=== PATIENT | female | born 1965 | race Caucasian/White ===

== ENCOUNTER 2017-08-16 08:31 | Inpatient (IN) ==
--- NOTE | 2017-08-16 07:46 | Discharge Summary ---
Date of Encounter: 08/17/17 Time of Encounter: 07:38 - Discharge Diagnosis (1) Arthritis of right hip Priority: Primary Status: Chronic (2) Status post total hip replacement, right Priority: Primary Status: Acute (3) Tobacco dependence Priority: Secondary Status: Chronic - Discharge Medications Home Medications: Aspirin Enteric Coated [Aspirin EC] 325 mg PO BID #20 tablet. 08/16/17 [Rx] Cholecalciferol (D-3) [Vitamin D] 3,000 unit PO DAILY 08/16/17 [History] Omeprazole [PriLOSEC] 20 mg PO DAILY 08/16/17 [History] OxyCODONE Immed Rel [Roxicodone 5 MG] 5 mg PO Q4HR PRN #24 tablet 08/16/17 [Rx] Ropinirole HCl [Requip] 2 mg PO HS 08/16/17 [History] Simvastatin [Zocor] 20 mg PO HS 08/16/17 [History] Allergies/Adverse Reactions: 3 Allergy/AdvReac Type Severity Reaction Status Date / Time No Known Allergies Allergy Verified 08/16/17 08:56 Primary care physician: Carmen Persaud, - Patient Status Disposition: Home, Self-Care Condition: Good Functional capacity at discharge: uses cane/walker Overall status at discharge: patient is progressing back to baseline - Discharge Instructions Follow Up With: Carmen Persaud MD [Primary Care Provider] - - Hospital Course Hospital course: Ms. Lopez is a 52 year old female Status post right total hip The patient had an uneventful postoperative course. They received antibiotics and physical therapy and were discharged in stable condition. There will follow -up in the office in 2 weeks. - Time Spent with Patient Total time spent providing and/or coordinating discharge services:
[2017-08-16] MEDS ORDERED: Albuterol 2.5 MG/3 ML NEBULIZER ONE (08:45)
[2017-08-16] MEDS ORDERED: Albuterol 2.5 MG/3 ML NEBULIZER IH ONE (09:00)
[2017-08-16] MEDS ORDERED: CeFAZolin Syr 2,000MG/20 ML 2,000 MG/20 ML SYRINGE IVPB ONE (09:00)
[2017-08-16] MEDS ORDERED: Ringers Solution, Lactated 1,000 ML IVC SCH (09:00)
--- NOTE | 2017-08-16 09:31 | History & Physical Report ---
Date of Encounter: 08/16/17 Time of Encounter: 09:30 24 Hour HP Update - Instructions Instructions: If the History and Physical is less than 30 days old and was completed prior to A.M. admission and or procedure and has NOT been updated on calendar day of procedure please complete this update prior to performing procedure. - Update Patient reports changes in Medical Condition: No Changes in examination, assessment, or condition: No Changes in Medication: No Preop tests/diagnostics Reviewed: Yes Surgery Remains Indicated: Yes Consent for Planned Operative Procedure(s) Verified: Yes - Pre-Operative Checklist Preoperative Checklist Indicated: No Prophylactic Antibiotic Ordered: Yes Is VTE Prophylaxis Indicated?: Yes
[2017-08-16] MEDS ORDERED: *HR* Labetalol 20 MG/4 ML SYRINGE IVP PRN (09:52)
[2017-08-16] MEDS ORDERED: *HR* Meperidine 25 MG/ML SYRINGE IVP PRN (09:52)
[2017-08-16] MEDS ORDERED: *HR* Promethazine 25 MG/ML VIAL IVP PRN (09:52)
--- NOTE | 2017-08-16 09:53 | Anesthesia Evaluation PreOp ---
Date of Encounter: 08/16/17 Time of Encounter: 09:51 - Past History Planned Operation: Right Total Hip Cardiac History: Denies any Significant Hx Pulmonary History: Smoker, Pack/yr (1 ppd x 30 Years) ARTS ADMINISTRATOR History: Denies Any Significant HX, Other (Anxiety) Other Medical History: GERD, Other (RLS, Vit. D Def) Anesthesia History: No Prior Anesthetic Complications, Past Anesthesia (Hyst, laparoscopy, Tonsilletomy, Breast Lumpectomy) : No (HYST) Alcohol Use: occasionally Drug use: none Medications and Allergies Aspirin Enteric Coated [Aspirin EC] 325 mg PO BID #20 tablet. 08/16/17 [Rx] Cholecalciferol (D-3) [Vitamin D] 3,000 unit PO DAILY 08/16/17 [History] Omeprazole [PriLOSEC] 20 mg PO DAILY 08/16/17 [History] OxyCODONE Immed Rel [Roxicodone 5 MG] 5 mg PO Q4HR PRN #24 tablet 08/16/17 [Rx] Ropinirole HCl [Requip] 2 mg PO HS 08/16/17 [History] Simvastatin [Zocor] 20 mg PO HS 08/16/17 [History] 3 Allergy/AdvReac Type Severity Reaction Status Date / Time No Known Allergies Allergy Verified 08/16/17 08:56 - Meds/Allergy Pre-op Review Medications Reviewed: Yes Allergies Reviewed: Yes Beta Blockers on Current Med List: No Anesthesia Results - Labs Laboratory Tests 08/06/17 08/06/17 08/06/17 11:55 11:55 11:55 WBC 8.0 Hgb 16.2 H Hct 48.9 H INR 1.0 Sodium 137 Potassium 4.3 Chloride 105 Carbon Dioxide 26 BUN 16 Creatinine 1.06 Anesthesia Exam O2 Sat Height 1.69 m Height 1.69 m Weight 83.915 kg Weight 83.915 kg O2 Sat by Pulse Oximetry 95 O2 Sat by Pulse Oximetry 95 Vital Signs Temp Pulse Resp BP Pulse Ox 97.8 F 91 16 94/68 95 08/16/17 08:51 08/16/17 08:51 08/16/17 08:51 08/16/17 08:51 08/16/17 08:51 Height: 5' 6.5" Weight: 185# NPO (# of Hours): > 8 hrs Pain Scale: 0 Pain Scale Used: Numeric (1 - 10) - HEENT Pupil (Motor): Pupils equal, EOMI Mallampati: II Teeth: Edentulous Oral Opening: Greater than 3 - ARTS ADMINISTRATOR LOC: Oriented ARTS ADMINISTRATOR Motor: Normal RUE, Normal LUE, Normal RLE, Normal LLE, Normal Face ARTS ADMINISTRATOR Sensory: Normal: RUE, LUE, RLE, LLE, Face - Cardiac Rhythm: Regular Murmur: None JVD: No Carotid Bruit: No - Pulmonary Breath Sounds: bilateral Clear Respiratory Effort: Symmetrical Anesthesia Assess/Plan ASA Score: 2 Modified Bartow Scale for Level of Consciousness: Cooperative, oriented, and tranquil Anesthetic Plan: General, Regional Autologous Blood: Yes Monitoring Plan: Standard Monitors Recovery Plan: PACU
[2017-08-16] MEDS ORDERED: *HR* FentaNYL (PF) 100 MCG/2 ML VIAL ONE (10:02)
[2017-08-16] MEDS ORDERED: Lidocaine -MPF 2% 2 ML VIAL ONE (10:02)
[2017-08-16] MEDS ORDERED: *HR* Midazolam HCl 2 MG/2 ML VIAL ONE (10:02)
[2017-08-16] MEDS ORDERED: Ondansetron 4 MG/2 ML VIAL ONE (10:02)
[2017-08-16] MEDS ORDERED: *HR* Succinylcholine 200 MG/10 ML VIAL IVP ONE (10:02)
[2017-08-16] MEDS ORDERED: *HR* Propofol 200 MG/20 ML VIAL IVP ONE (10:03)
[2017-08-16] MEDS ORDERED: Ethanol\\Acetic Acid\\Na Ace\\Ben 1,000 ML IRRIG.SOLN IR ONE (10:48)
[2017-08-16] MEDS ORDERED: Bupivacaine/Clonidine Syringe 1 EACH SYRINGE ONE (10:50)
[2017-08-16] MEDS ORDERED: Acetaminophen IV 1,000 MG/100 ML INFUS..BTL ONE (11:36)
[2017-08-16] MEDS ORDERED: *HR* HYDROmorphone 2 MG/ML SYRINGE ONE (12:03)
--- NOTE | 2017-08-16 12:10 | Anesthesia Procedures ---
Date of Encounter: 08/16/17 Time of Encounter: 11: Procedures: Anesthesia - Nerve Block Procedure Date: 08/16/17 Time: 11:30 Surgical Procedure: right total hip arthroplasty Checklist: Correct Patient Identifier, Correct procedure, History checked Correct side: Right Blood Thinner: No Monitor Applied: EKG, BP, Pulse Oximetry Supplemental Oxygen via Nasal Cannula (L/min): 2 Sedation: Versed (mg): 2 Sedation: Fentanyl (mcg): 100 Indication: Post Op Analgesia Pre-op Neuro Deficits: No Block Type: Other (fascia illiaca) Catheter placed: No Sterile Technique: Yes Ultrasound used: Yes Anatomy identified: Yes Visual spread of Local: Yes Blood on Needle Aspiration: No Smooth Injection of Local: Yes Pain with Injection of Local: No Prep: Chlorhexadine Needle: 22 x 50 mm Stimuplex Local: 0.25% Bupivicaine w/Clonidine 20 mcg/cc Volume (cc): 60 Number of Attempts: 1 Complications: None/effective block Vitals: Vital Signs/O2 Sat, Most Current Temp Pulse Resp BP Pulse Ox 97.8 F 70 18 105/72 96 08/16/17 08:51 08/16/17 11:38 08/16/17 11:38 08/16/17 11:38 08/16/17 11:38
[2017-08-16] MEDS ORDERED: Dexamethasone 4 MG/ML VIAL ONE (12:13)
[2017-08-16] MEDS ORDERED: Lidocaine -MPF 4% 5 ML AMPUL ONE (12:25)
[2017-08-16] MEDS ORDERED: Ketorolac 30 MG/ML VIAL ONE (12:43)
--- NOTE | 2017-08-16 13:01 | Orthopedic Operative Note ---
Date of procedure: 08/16/17 Pre-op diagnosis: Right hip arthritis Post-op diagnosis: same Procedure: Procedure: Right Total Hip Replacment robotic-assisted Estimated blood loss: 200 cc Hardware: Metal and polyethylene replacement. Shiloh DM Cup: 52 cup Femoral size stem 7 Head:12 head with Brenda Procedural Notes: Grade 4 arthritic changes femoral head acetabular socket, procedure performed with robotic assistance. Patient was 12 mm shorter on the operative leg preoperatively measured by the CAT scan. Operative procedure: The patient was brought to the operating room and placed on the operating room table. After general anesthesia was administered the patient was placed in the lateral decubitus position with the operative leg up. All pressure points were padded appropriately and the head was stabilized in the neutral position. The operative extremity was prepped and draped in the sterile surgical fashion patient received IV antibiotic prior to skin incision. 3 Steinmann pins were placed in the iliac crest 3 cm proximal to the anterior superior iliac spine this was for the robotic-assisted sensor. This was done through a small 2 cm incision. A standard posterior approach is made to the operative hip, the incision was made through the skin and subcutaneous tissue hemostasis was obtained with Bovie cautery. Using careful sharp dissection the fascia was identified and incised exposing the external rotators. The femoral checkpoint was placed leg length was measured at this time utilizing robotic assistance. The external rotators were released off the greater trochanter and tagged with # 2 FiberWire suture. The capsule was T'd open and the hip was brought into internal rotation. Patient noted to have grade 4 arthritic changes femoral head. The femoral neck cut was made at the appropriate level roughly 18 mm proximal to the lesser trochanter aced on preoperative templating. An anterior capsulotomy was performed for the anterior retractor. Soft tissues removed from the acetabulum. Patient noted to have grade 4 arthritic changes acetabulum. The acetabulum checkpoint was placed confirmed. The acetabulum was then mapped with robotic assistance. Based on the preoperative plan the acetabulum was reamed in one step with a 51 reamer. The 52 acetabulum was impacted with robotic assistance and 40 degrees of abduction and 20 degrees of anteversion. The hip was brought back in to internal rotation and prepared with the box bender followed by the canal finder followed by the reaming process to a size 7 broaching process in 20 degrees anteversion. It was broached up to the appropriate size 7. Trial reduction revealed leg lengths close to normal. The femoral implant was impacted in place in 20 degrees of anteversion. Trial reduction found the hip to be stable with 12 head and Brenda. The trials were removed and the real implants were impacted in place. The hip was reduced, patient had robotic confirmed leg length of 6 mm short than the contralateral side. The hip had excellent stability with forward flexion to 90 degrees adduction of 30 degrees and internal rotation of 60 degrees. The hip had no shuck. The hips after 2 minutes with a Betadine saline solution. It was irrigated out with 2 L of pulse irrigation. The checkpoints were removed, Steinmann pins were removed. The deep tissue was irrigated and closed deep with #1 PDS suture superficially with 0 PDS suture and skin was closed with Dermabond and zip tie. The patient was placed in a sterile dressing and abduction pillow. The patient was extubated and transferred to the recovery room in stable condition. Anesthesia: GETA Surgeon: Jeremy Mike Was there an behavioral assistant present: No Estimated blood loss (cc): 200 Condition: stable Disposition: PACU
[2017-08-16] MEDS: *HR* HYDROmorphone (PF) 1 MG/ML SYRINGE IVP PRN ×4 (13:10→13:27)
--- NOTE | 2017-08-16 13:46 | Anesthesia Evaluation Post Op ---
Date of Encounter: 08/16/17 Time of Encounter: 13:45 - Vital Signs Vital Signs: Vital Signs/O2 Sat, Most Current Temp Pulse Resp BP Pulse Ox 97.8 F 81 16 125/88 95 08/16/17 13:37 08/16/17 13:37 08/16/17 13:37 08/16/17 13:37 08/16/17 13:37 - Lungs Lungs: Clear Ascult./Percussion - Airway Airway: Non-obstructed - Cardiovascular Regular Rate - Mental Status Mental Status: Alert & Oriented, Answers Appropriately - Pain Pain Scale: 0 Pain Scale used: Numeric (1 - 10) - Nausea Vomiting Nausea Vomiting: Not Present - Hydration Hydration: NPO, Has not voided - Discharge PostOp Status: Transfer Patient to floor
[2017-08-16] MEDS ORDERED: Naloxone 0.4 MG/ML INJ IVP PRN (14:10)
[2017-08-16] MEDS ORDERED: *HR* HYDROmorphone (PF) 1 MG/ML SYRINGE IVP PRN (14:10)
[2017-08-16] MEDS ORDERED: Ondansetron 4 MG/2 ML VIAL IVP PRN (14:10)
[2017-08-16] MEDS ORDERED: Sennosides 8.6 MG TABLET PO PRN (14:10)
[2017-08-16] MEDS ORDERED: Temazepam 15 MG CAPSULE PO PRN (14:10)
[2017-08-16] MEDS ORDERED: MOM Conc 10 ML UD.LIQ PO PRN (14:10)
[2017-08-16] MEDS ORDERED: *HR* OxyCODONE Immed Rel 5 MG TABLET PO PRN (14:10)
[2017-08-16 14:17] LABS: Hematocrit 41.1 % (35.3-44.9); Hemoglobin 13.9 g/dL (11.5-15.4)
[2017-08-16] MEDS: CeFAZolin Premix DUPLEX 2,000 MG/50 ML BAG IVPB SCH (15:12)
[2017-08-16] MEDS: *HR* OxyCODONE Immed Rel 5 MG TABLET PO PRN ×2 (15:12→19:27)
[2017-08-16] MEDS: Ascorbic Acid 500 MG TABLET PO SCH (15:12)
[2017-08-16] MEDS: Ringers Solution, Lactated 1,000 ML IVC SCH (15:15)
[2017-08-16] MEDS ORDERED: *HR* Enoxaparin 30 MG/0.3 ML SYRINGE SQ SCH ×2 (18:00)
[2017-08-16] MEDS ORDERED: rOPINIRole 1 MG TABLET PO SCH (21:00)
[2017-08-17] MEDS: CeFAZolin Premix DUPLEX 2,000 MG/50 ML BAG IVPB SCH (01:00)
[2017-08-17] MEDS: *HR* OxyCODONE Immed Rel 5 MG TABLET PO PRN ×3 (02:54→13:15)
[2017-08-17] MEDS: Ringers Solution, Lactated 1,000 ML IVC SCH (03:45)
[2017-08-17 06:37] LABS: Hematocrit 38.6 % (35.3-44.9); Hemoglobin 12.8 g/dL (11.5-15.4)
[2017-08-17 06:43] LABS: BUN/Creatinine Ratio 13 (6-26); Blood Urea Nitrogen 13 mg/dL (6-20); Calcium 8.7 mg/dL (8.6-10.3); Carbon Dioxide 25 mEq/L (23-29); Chloride 107 mEq/L (98-107); Glucose 122 mg/dL (70-105); Osmolality,Calculated 283 (280-300); Potassium 4.7 mEq/L (3.5-5.1); Sodium 136 mEq/L (136-145); eGFR For African Americans > 60 (> 60); eGFR For Non-African Americans > 60 (> 60)
--- NOTE | 2017-08-17 07:40 | Orthopedics Progress Note ---
Date of Encounter: 08/17/17 Time of Encounter: 07:39 - Assessment and Plan (1) Arthritis of right hip Current Visit: No Status: Chronic (2) Status post total hip replacement, right Current Visit: No Status: Acute (3) Tobacco dependence Current Visit: Yes Status: Chronic Subjective Interval history: Patient was seen this morning doing well without complaints. Afebrile vital signs stable. Operative extremity: Neurovascularly intact Bloody drainage stephanie added new dressing Calves nontender Assessment and plan: Continue with postoperative care hematocrit 38 discharged today Objective Vital signs: Vital Signs Temp Pulse Resp BP Pulse Ox 08/17/17 03:43 97.8 F 80 18 112/80 98 08/17/17 00:00 97.7 F 83 18 115/85 97 08/16/17 21:12 97.9 F 85 18 119/89 98 08/16/17 17:15 98.2 F 75 16 114/73 95 08/16/17 16:15 97.8 F 87 16 123/81 92 08/16/17 15:15 97.5 F L 76 15 114/73 94 08/16/17 14:57 95 08/16/17 14:45 97.6 F 76 15 113/76 93 08/16/17 14:15 98.0 F 75 16 100/69 96 08/16/17 13:37 97.8 F 81 16 125/88 95 08/16/17 13:27 97.8 F 84 16 111/81 96 08/16/17 13:17 80 16 121/84 98 08/16/17 13:07 97.3 F L 86 16 118/89 98 08/16/17 11:38 70 18 105/72 96 08/16/17 11:25 71 18 106/71 97 08/16/17 11:10 64 18 106/74 96 08/16/17 10:55 65 18 110/84 97 08/16/17 09:06 16 94/68 95 08/16/17 08:51 97.8 F 91 16 94/68 95 Intake and Output 08/16/17 08/16/17 08/17/17 15:59 23:59 07:59 Intake Total 170 / 170 240 / 240 1050 / 1050 Output Total 200 / 200 600 / 600 1150 / 1150 Balance -30 / -30 -360 / -360 -100 / -100 Intake: IV Fluids 50 / 50 1050 / 1050 Lactated Ringers 1,000 ML @ 75 1000 / 1000 mls/hr IVC .[id number] ELANA Rx#: [id number] Ancef Premix DUPLEX 2,000 mg In 50 / 50 50 / 50 50 ml @ 100 mls/hr IVPB Q8HR ELANA Rx#:[id number] Oral 120 / 120 240 / 240 Output: Urine 600 / 600 1150 / 1150 Estimated Blood Loss 200 / 200 Other: Meal Dinner Percent of Meal Consumed 20% Weight 83.915 kg 85.1 kg Patient Weight 08/17/17 23:59 Weight 85.1 kg - Labs CBC & BMP: 08/17/17 06:08 08/17/17 06:08 Labs: Abnormal lab results Glucose 122 mg/dL (70-105) H 08/17/17 06:08 - VTE Documentation of Mechanical Device: Venous foot pump, device Consult Discharge Plan - Plan Referrals: Carmen Persaud MD [Primary Care Provider] -
[2017-08-17 07:45] VITALS: BP 100/66
[2017-08-17] MEDS ORDERED: Multivit/Ca/Min/Fe/FA 1 TAB TABLET PO SCH (09:00)
[2017-08-17] MEDS ORDERED: Cholecalciferol (D-3) 1,000 UNIT TABLET PO SCH (09:00)
[2017-08-17] MEDS: Ascorbic Acid 500 MG TABLET PO SCH (09:02)
--- NOTE | 2017-08-19 14:33 | Physician Discharge Referral ---
Home Health/Hosp Referral Info Transfer to: Home Health Attending Provider: Dr Jeremy Mike - Diagnosis (1) Arthritis of right hip Priority: Primary Status: Chronic (2) Status post total hip replacement, right Priority: Primary Status: Acute (3) Tobacco dependence Priority: Secondary Status: Chronic - Respiratory Orders Smoking Cessation: Smoking cessation has been advised. For more information, call the [place] Tobacco Quit Line at 7-791-PZTC-NOW. - Dressing/Wound Care Site: right hip Type of Dressing/Treatments w/Frequency: Opsite placed. Keep dressing intact until first follow up appointment. If > 50% saturated, notify office, remove dressing and place appropriate dressing back in place. Leave Zipline intact. Opsite dressing is water resistant, not water- proof. OK to shower, but do not get dressing wet. - Diet/Nutrition Diet/Nutrition Orders: Regular - Activity Activity Orders: Up ad harinder, Ambulate, Chair, Walker Activity: List: Total Hip replacement Precautions Apply cold therapy 3-6x/day for 20 minutes at a time. Encourage ambulation throughout the day and incentive spirometer 10x/hour. Elevate affected extremity as tolerated. Brace: Wear hip abduction pillow when laying/sleeping - Services Needed Following services are medically necessary services: Nursing, Physical Therapy, Occupational Therapy - Transfer Medications Home Medications: Aspirin Enteric Coated [Aspirin EC] 325 mg PO BID #20 tablet. 08/16/17 [Rx] Cholecalciferol (D-3) [Vitamin D] 3,000 unit PO DAILY 08/16/17 [History] Omeprazole [PriLOSEC] 20 mg PO DAILY 08/16/17 [History] OxyCODONE Immed Rel [Roxicodone 5 MG] 5 mg PO Q4HR PRN #24 tablet 08/16/17 [Rx] Ropinirole HCl [Requip] 2 mg PO HS 08/16/17 [History] Simvastatin [Zocor] 20 mg PO HS 08/16/17 [History] Allergies/Adverse Reactions: 3 Allergy/AdvReac Type Severity Reaction Status Date / Time No Known Allergies Allergy Verified 08/16/17 08:56 Certification: Further, I certify that my clinical findings support that this patient is homebound (i.e. absences from home require considerable and taxing effort and are for medical reasons or restorationist services or infrequently or short duration when for other reasons) because: Homebound Reason: Post-surgery restriction and or conditions limit ability to leave home Attestation: My signature below is to certify that this patient is under my care and that I, or nurse practitioner, or a physician unit assistant working with me, has a face-to- face encounter with this patient.
== END 2017-08-17 13:59 | disposition home or self-care (01) | DRG 470 ==
LOC: SAMDAY 08:31 → 3NENU 08:32
PROVIDERS: ADMIT Orthopaedic Surgery; ATTEND Orthopaedic Surgery